=== PATIENT | female | born 1940 | race Two or more races ===

== ENCOUNTER → 2018-04-13 | Outpatient (CLI) | payer MEDICARE, MEDICAID ==
[~2018-04-13] MED LIST: ATO40T PO; IRBE300T46; LEVO25TA6 PO
== END | disposition home or self-care (01) ==
LOC: Rad HDHVI 13:34
PROVIDERS: ATTEND Internal Medicine
DX: I07.1 Rheumatic tricuspid insufficiency (principal); I34.0 Nonrheumatic mitral (valve) insufficiency; I10 Essential (primary) hypertension; I31.3 Pericardial effusion (noninflammatory); R00.1 Bradycardia, unspecified; R42 Dizziness and giddiness
CPT/HCPCS: 93306

== ENCOUNTER 2018-05-01 19:57 | Inpatient (IN) | payer MEDICARE, MEDICAID ==
[~2018-05-01] VITALS: Ht 154.9 cm; Wt 83.3 kg
[~2018-05-01 19:57] MED LIST changes: -AMIO200T33 PO; -APIX2.5T OR; -ESCI10TA PO; -IRBE150T57 PO; -LAM100T OR; -RANI150C11 PO
[2018-05-01] MEDS ORDERED: cloNIDine HCL 0.1 MG TAB ONE (20:45)
[2018-05-01] MEDS ORDERED: cloNIDine HCL 0.1 MG TAB PO ONE (20:45)
[2018-05-01 21:53] LABS: Albumin 3.7 g/dL (3.4-5.0); Calcium 7.7 mg/dL (8.5-10.1); Magnesium 2.4 mg/dL (1.6-2.6); Potassium 4.2 mmol/L (3.5-5.1)
[2018-05-01 21:55] LABS: BUN/Creatinine Ratio 16.1
[2018-05-01 22:00] LABS: Total Protein 7.6 g/dL (6.4-8.2)
[2018-05-01 22:03] LABS: Basophils # (auto) 0 uL; Basophils % (auto) 0.3 % (0.0-2.0); Eosinophils # (auto) 0.3 uL; Eosinophils % (auto) 4.8 % (0.0-7.0); Hematocrit 40.1 % (36.0-46.0); Hemoglobin 13.1 g/dL (12.2-16.2); Lymphocytes # (auto) 1.6 uL; Lymphocytes % (auto) 25.5 % (10.0-50.0); Mean Corpuscular Hemoglobin 27.9 pg (28.0-32.0); Mean Corpuscular Hgb Conc. 32.7 g/dL (32.0-36.0); Mean Corpuscular Volume 85.5 fL (80.0-100.0); Monocytes # (auto) 0.6 uL; Monocytes % (auto) 9.6 % (0.0-12.0); Neutrophils # (auto) 3.7 uL; Neutrophils % (auto) 59.8 % (37.0-80.0); Nucleated Red Blood Cells % 0.1 %; Platelet Count (auto) 146 10^3/uL (140-450); Red Blood Cells 4.69 10^6/uL (4.0-5.20); Red Cell Distribution Width 16.5 % (11.8-14.3); White Blood Cell 6.2 10^3/uL (4.4-10.8)
[2018-05-02 01:13] LABS: INR 1.06 (0.9-1.15); Partial Thromboplastin Time 31.2 sec (23.78-33.04); Prothrombin Time 11.3 sec (9.27-12.13)
[2018-05-02 01:27] LABS: Urine Bacteria NONE SEEN /hpf (None Seen); Urine Blood Negative /uL (Negative); Urine Specific Gravity 1.018 (1.001-1.035); Urine WBC 2 /hpf (0 - 5)
[2018-05-02] MEDS ORDERED: MORPHINE SULFATE 4 MG/ML SYR/VIAL IV PRN (05:45)
[2018-05-02] MEDS ORDERED: NITROGLYCERIN 0.4 MG SL TAB SL PRN (05:45)
[2018-05-02] MEDS ORDERED: ONDANSETRON HCL 4 MG/2 ML VIAL IV PRN (06:45)
[2018-05-02] MEDS: LEVOTHYROXINE SODIUM 100 MCG TAB PO SCH (07:04)
[2018-05-02] MEDS: ACETAMINOPHEN 500 MG TAB PO PRN ×2 (07:49→18:02)
[2018-05-02] MEDS ORDERED: ENOXAPARIN SOD 80 MG/0.8ML SYRINGE SC SCH (08:00)
[2018-05-02] MEDS ORDERED: NIFEdipine 10 MG CAP PO ONE (08:30)
[2018-05-02] MEDS ORDERED: ASPirin-EC 81 mg tab PO SCH (10:00)
[2018-05-02 10:52] VITALS: BP 154/96
[2018-05-02 10:52] LABS: Basophils # (auto) 0 uL; Basophils % (auto) 0.6 % (0.0-2.0); Eosinophils # (auto) 0.3 uL; Eosinophils % (auto) 5.5 % (0.0-7.0); Hematocrit 35.9 % (36.0-46.0); Hemoglobin 11.9 g/dL (12.2-16.2); Lymphocytes # (auto) 1.3 uL; Lymphocytes % (auto) 25.7 % (10.0-50.0); Mean Corpuscular Hgb Conc. 33.1 g/dL (32.0-36.0); Mean Corpuscular Volume 84.7 fL (80.0-100.0); Monocytes # (auto) 0.5 uL; Monocytes % (auto) 10.9 % (0.0-12.0); Neutrophils # (auto) 2.8 uL; Neutrophils % (auto) 57.3 % (37.0-80.0); Nucleated Red Blood Cells % 0.1 %; Platelet Count (auto) 127 10^3/uL (140-450); Red Blood Cells 4.24 10^6/uL (4.0-5.20); Red Cell Distribution Width 16.8 % (11.8-14.3); White Blood Cell 4.9 10^3/uL (4.4-10.8)
[2018-05-02] MEDS: LOSARTAN POTASSIUM 50 MG TAB PO SCH (11:04)
[2018-05-02] MEDS: NIFEdipine ER 30 MG TAB PO SCH (11:04)
[2018-05-02 11:06] LABS: Calcium 7.9 mg/dL (8.5-10.1); Potassium 4.1 mmol/L (3.5-5.1)
[2018-05-02 12:30] VITALS: BP 138/58
[2018-05-02 16:27] VITALS: BP 116/58
[2018-05-02] MEDS ORDERED: RANI150C11 PO (17:25)
[2018-05-02] MEDS ORDERED: IRBE150T57 PO (17:25)
[2018-05-02] MEDS ORDERED: AMIO200T33 PO (17:25)
[2018-05-02] MEDS ORDERED: APIX2.5T OR (17:25)
[2018-05-02] MEDS ORDERED: LAM100T OR (17:25)
[2018-05-02] MEDS ORDERED: ESCI10TA PO (17:25)
[2018-05-02] MEDS ORDERED: LORazepam 2MG/ML-1ML VIAL IV PRN (20:30)
[2018-05-02] MEDS: APIXABAN 2.5 MG TAB PO SCH (21:53)
[2018-05-02] MEDS: lamoTRIgine 100 MG TAB PO SCH (22:02)
[2018-05-02] MEDS: ATORVASTATIN 20 MG TAB PO SCH (22:02)
[2018-05-02] MEDS: PRAMIPEXOLE DIHYDROCHLORIDE MO 0.25 MG TAB PO SCH (22:02)
[2018-05-02 22:08] VITALS: BP 142/63
[2018-05-03] MEDS: ACETAMINOPHEN 500 MG TAB PO PRN ×2 (04:58→19:56)
[2018-05-03 05:27] VITALS: BP 147/76
[2018-05-03 06:21] LABS: % Iron Saturation 15.7 % (15-50)
[2018-05-03] MEDS: LEVOTHYROXINE SODIUM 100 MCG TAB PO SCH (06:23)
[2018-05-03 08:45] LABS: Cholesterol 81 mg/dL (< 200); HDL Cholesterol 42 mg/dL (40-59); LDL Cholesterol 42 mg/dL (< 100); Triglycerides 80 mg/dL (< 150)
[2018-05-03 09:09] VITALS: BP 148/56
[2018-05-03 09:31] VITALS: BP 131/75
[2018-05-03] MEDS: LOSARTAN POTASSIUM 50 MG TAB PO SCH (10:46)
[2018-05-03] MEDS: NIFEdipine ER 30 MG TAB PO SCH (10:46)
[2018-05-03] MEDS: lamoTRIgine 100 MG TAB PO SCH ×2 (10:46→21:47)
[2018-05-03] MEDS: APIXABAN 2.5 MG TAB PO SCH ×2 (10:46→21:46)
[2018-05-03 13:22] VITALS: BP 127/89
[2018-05-03 17:04] VITALS: BP 135/87
[2018-05-03] MEDS ORDERED: LACTULOSE 20Gm/30ML SOLN PO PRN (17:45)
[2018-05-03 19:56] LABS: INR 1.01 (0.9-1.15); Partial Thromboplastin Time 31.2 sec (23.78-33.04); Prothrombin Time 10.8 sec (9.27-12.13)
[2018-05-03] MEDS: SODIUM CHLORIDE 0.9% 1,000 ML IV SCH (20:52)
[2018-05-03 21:20] VITALS: BP 144/59
[2018-05-03] MEDS: PRAMIPEXOLE DIHYDROCHLORIDE MO 0.25 MG TAB PO SCH (21:47)
[2018-05-03] MEDS: METOCLOPRAMIDE HCL 10 MG TAB PO SCH (21:47)
[2018-05-03] MEDS: ATORVASTATIN 20 MG TAB PO SCH (21:47)
[2018-05-04 05:17] VITALS: BP 164/55
[2018-05-04] MEDS: SODIUM CHLORIDE 0.9% 1,000 ML IV SCH ×2 (05:24→16:52)
[2018-05-04 06:09] VITALS: BP 146/77
[2018-05-04] MEDS: METOCLOPRAMIDE HCL 10 MG TAB PO SCH ×3 (06:09→21:59)
[2018-05-04] MEDS: LEVOTHYROXINE SODIUM 100 MCG TAB PO SCH (06:10)
[2018-05-04] MEDS ORDERED: LIDOCAINE 2%HCL (LOCAL ANESTH.) INJ 10ml MDV ONE (07:20)
[2018-05-04] MEDS ORDERED: IOHEXOL 350 MG/ML 100ML IJ ONE (07:21)
[2018-05-04] MEDS ORDERED: fentaNYL CITRATE 100 MCG/2 ML VL ONE (08:01)
[2018-05-04] MEDS ORDERED: ANGIOMAX 250 MG VIAL IV ONE (08:01)
[2018-05-04] MEDS ORDERED: SODIUM CHL 0.9% 0 ML ONE (08:02)
[2018-05-04] MEDS ORDERED: MIDAZOLAM HCL 1MG/1ML-2 ML VIAL ONE (08:02)
[2018-05-04] MEDS: DEXAMETHASONE INJECTION 10 MG in D5W 5% 50 ML IV SCH (10:27)
[2018-05-04] MEDS: LOSARTAN POTASSIUM 50 MG TAB PO SCH (10:42)
[2018-05-04] MEDS: NIFEdipine ER 30 MG TAB PO SCH (10:42)
[2018-05-04] MEDS: APIXABAN 2.5 MG TAB PO SCH ×2 (10:43→21:59)
[2018-05-04] MEDS: lamoTRIgine 100 MG TAB PO SCH (10:43)
[2018-05-04 13:00] VITALS: BP 158/78
[2018-05-04 17:00] VITALS: BP 161/68
[2018-05-04] MEDS ORDERED: hydrALAZINE HCL 25 MG TAB PO ONE (17:30)
[2018-05-04] MEDS ORDERED: ISOSORBIDE DINITRATE 10 MG TAB PO ONE (17:30)
[2018-05-04] MEDS: ACETAMINOPHEN 500 MG TAB PO PRN (19:20)
[2018-05-04] MEDS: ATORVASTATIN 20 MG TAB PO SCH (21:59)
[2018-05-04] MEDS: PRAMIPEXOLE DIHYDROCHLORIDE MO 0.25 MG TAB PO SCH (21:59)
[2018-05-04] MEDS: hydrALAZINE HCL 25 MG TAB PO SCH (22:00)
[2018-05-04 22:18] VITALS: BP 129/58
[2018-05-05] MEDS: SODIUM CHLORIDE 0.9% 1,000 ML IV SCH (03:44)
[2018-05-05 05:31] VITALS: BP 144/57
[2018-05-05] MEDS: hydrALAZINE HCL 25 MG TAB PO SCH ×3 (06:15→21:56)
[2018-05-05] MEDS: METOCLOPRAMIDE HCL 10 MG TAB PO SCH ×3 (06:16→21:59)
[2018-05-05] MEDS: LEVOTHYROXINE SODIUM 100 MCG TAB PO SCH (06:24)
[2018-05-05 09:00] VITALS: BP 138/54
[2018-05-05] MEDS: ISOSORBIDE DINITRATE 10 MG TAB PO SCH (09:31)
[2018-05-05] MEDS: NIFEdipine ER 30 MG TAB PO SCH (09:31)
[2018-05-05] MEDS: APIXABAN 2.5 MG TAB PO SCH ×2 (09:32→21:59)
[2018-05-05] MEDS: lamoTRIgine 100 MG TAB PO SCH (09:32)
[2018-05-05] MEDS: LOSARTAN POTASSIUM 50 MG TAB PO SCH (09:33)
[2018-05-05] MEDS: DEXAMETHASONE INJECTION 10 MG in D5W 5% 50 ML IV SCH (10:32)
[2018-05-05 13:00] VITALS: BP 125/57
[2018-05-05 17:00] VITALS: BP 139/49
[2018-05-05] MEDS: PRAMIPEXOLE DIHYDROCHLORIDE MO 0.25 MG TAB PO SCH (21:59)
[2018-05-05] MEDS: ATORVASTATIN 20 MG TAB PO SCH (21:59)
[2018-05-05] MEDS: ACETAMINOPHEN 500 MG TAB PO PRN (22:04)
[2018-05-05 22:14] VITALS: BP 143/70
[2018-05-06 05:38] VITALS: BP 147/71
[2018-05-06] MEDS: hydrALAZINE HCL 25 MG TAB PO SCH ×2 (06:30→14:00)
[2018-05-06] MEDS: LEVOTHYROXINE SODIUM 100 MCG TAB PO SCH (06:30)
[2018-05-06] MEDS: METOCLOPRAMIDE HCL 10 MG TAB PO SCH ×2 (06:30→14:00)
[2018-05-06 09:00] VITALS: BP 122/60
[2018-05-06] MEDS: LOSARTAN POTASSIUM 50 MG TAB PO SCH (09:30)
[2018-05-06] MEDS: APIXABAN 2.5 MG TAB PO SCH (09:30)
[2018-05-06] MEDS: NIFEdipine ER 30 MG TAB PO SCH (09:31)
[2018-05-06] MEDS: lamoTRIgine 100 MG TAB PO SCH (09:31)
[2018-05-06] MEDS: ISOSORBIDE DINITRATE 10 MG TAB PO SCH (09:31)
[2018-05-06] MEDS: DEXAMETHASONE INJECTION 10 MG in D5W 5% 50 ML IV SCH (10:07)
[2018-05-06 12:32] VITALS: BP 122/60
== END 2018-05-06 13:52 | disposition home or self-care (01) | DRG 287 ==
LOC: ER 19:57 → TELE 19:58 → TELE-WESTW 05-02 08:25
PROVIDERS: ADMIT Nurse Practitioner Family; ATTEND Family Medicine
PROC: 4A023N7 Measurement of Cardiac Sampling and Pressure, Left Heart, Percutaneous Approach (ICD-10-PCS; principal; 2018-05-04)
PROC: B2111ZZ Fluoroscopy of Multiple Coronary Arteries using Low Osmolar Contrast (ICD-10-PCS; 2018-05-04)
PROC: B2151ZZ Fluoroscopy of Left Heart using Low Osmolar Contrast (ICD-10-PCS; 2018-05-04)
DX: R00.1 Bradycardia, unspecified (principal); R55 Syncope and collapse; I11.0 Hypertensive heart disease with heart failure; I50.9 Heart failure, unspecified; E83.51 Hypocalcemia; E78.00 Pure hypercholesterolemia, unspecified; E11.9 Type 2 diabetes mellitus without complications; E78.5 Hyperlipidemia, unspecified; G25.81 Restless legs syndrome; E03.9 Hypothyroidism, unspecified; G44.309 Post-traumatic headache, unspecified, not intractable; N28.9 Disorder of kidney and ureter, unspecified; S00.03XA Contusion of scalp, initial encounter; W18.39XA Other fall on same level, initial encounter; G43.909 Migraine, unspecified, not intractable, without status migrainosus; G47.00 Insomnia, unspecified; R29.6 Repeated falls; Z79.01 Long term (current) use of anticoagulants; Z79.899 Other long term (current) drug therapy; Z90.49 Acquired absence of other specified parts of digestive tract; Z82.49 Family history of ischemic heart disease and other diseases of the circulatory system; Z83.3 Family history of diabetes mellitus; Y93.89 Activity, other specified; Y92.89 Other specified places as the place of occurrence of the external cause; Y99.8 Other external cause status
CPT/HCPCS: 36415; 70450; 70551; 71045; 72125; 78452; 80048; 80053; 80061; 81001; 81003; 82306; 82607; 82728; 83036; 83540; 83550; 83735; 83880; 84439; 84443; 84484; 85025; 85379; 85610; 85652; 85730; 86850; 86900; 86901; 87086; 93005; 93017; 93886; 95819; 96372; 99152; A6257; J1100; J2001; J2250; J7060

== ENCOUNTER → 2018-05-01 | Outpatient (CLI) | payer MEDICARE, MEDICAID ==
[~2018-05-01] VITALS: Ht 157.5 cm; Wt 77.1 kg
[~2018-05-01] MED LIST changes: +AMIO200T33 PO; +APIX2.5T OR; +ESCI10TA PO; +IRBE150T57 PO; +LAM100T OR; +RANI150C11 PO
--- NOTE | 2018-05-01 10:54 | NUR ---
Unable to complete study, patients bp too high, hr too low. Patient has not taken her bp medication for 2 days and she had chocolate yesterday afternoon. will reschedule
[2018-05-01 12:24] LABS: Urine Blood Negative /uL (Negative); Urine Specific Gravity 1.013 (1.001-1.035)
[2018-05-01 12:36] LABS: Albumin 3.8 g/dL (3.4-5.0); Calcium 8.3 mg/dL (8.5-10.1); Potassium 4.2 mmol/L (3.5-5.1)
[2018-05-01 12:45] LABS: BUN/Creatinine Ratio 18.4; Total Protein 7.6 g/dL (6.4-8.2)
[2018-05-01 12:54] LABS: Free T4 (Free Thyroxine) 1.11 ng/dL (0.89-1.76)
[2018-05-01 14:55] LABS: Basophils # (auto) 0 uL; Basophils % (auto) 0.6 % (0.0-2.0); Eosinophils # (auto) 0.3 uL; Eosinophils % (auto) 5.6 % (0.0-7.0); Hematocrit 39.6 % (36.0-46.0); Hemoglobin 13.1 g/dL (12.2-16.2); Lymphocytes # (auto) 1.2 uL; Mean Corpuscular Hemoglobin 28.4 pg (28.0-32.0); Mean Corpuscular Hgb Conc. 33.2 g/dL (32.0-36.0); Mean Corpuscular Volume 85.4 fL (80.0-100.0); Monocytes # (auto) 0.5 uL; Monocytes % (auto) 9.6 % (0.0-12.0); Neutrophils # (auto) 3.2 uL; Neutrophils % (auto) 61.2 % (37.0-80.0); Nucleated Red Blood Cells % 0.2 %; Platelet Count (auto) 145 10^3/uL (140-450); Red Blood Cells 4.63 10^6/uL (4.0-5.20); Red Cell Distribution Width 16.7 % (11.8-14.3); White Blood Cell 5.3 10^3/uL (4.4-10.8)
== END | disposition home or self-care (01) ==
LOC: Rad HDHVI 08:42
PROVIDERS: ATTEND Internal Medicine
DX: Z00.00 Encounter for general adult medical examination without abnormal findings (principal); E03.9 Hypothyroidism, unspecified; E55.9 Vitamin D deficiency, unspecified; E11.9 Type 2 diabetes mellitus without complications; D51.9 Vitamin B12 deficiency anemia, unspecified; R70.0 Elevated erythrocyte sedimentation rate; N39.0 Urinary tract infection, site not specified
CPT/HCPCS: 36415; 80053; 80061; 81003; 82306; 82607; 83036; 84439; 84443; 85025; 85652; 87086

== ENCOUNTER 2018-05-26 20:51 | Emergency (ER) | payer MEDICARE, MEDICAID ==
[~2018-05-26] VITALS: Ht 152.4 cm; Wt 77.1 kg
[~2018-05-26 20:51] MED LIST changes: +AMIO200T33 PO; +APIX2.5T OR; +ESCI10TA PO; +IRBE150T57 PO; -IRBE300T46; +LAM100T OR; +RANI150C11 PO
[2018-05-26 22:09] LABS: Basophils # (auto) 0 uL; Basophils % (auto) 0.6 % (0.0-2.0); Eosinophils # (auto) 0.4 uL; Eosinophils % (auto) 7.8 % (0.0-7.0); Hematocrit 44.5 % (36.0-46.0); Hemoglobin 14.6 g/dL (12.2-16.2); Lymphocytes # (auto) 1.3 uL; Lymphocytes % (auto) 25.2 % (10.0-50.0); Mean Corpuscular Hemoglobin 28.1 pg (28.0-32.0); Mean Corpuscular Hgb Conc. 32.8 g/dL (32.0-36.0); Mean Corpuscular Volume 85.6 fL (80.0-100.0); Monocytes # (auto) 0.6 uL; Monocytes % (auto) 10.8 % (0.0-12.0); Neutrophils # (auto) 2.9 uL; Neutrophils % (auto) 55.6 % (37.0-80.0); Nucleated Red Blood Cells % 0.1 %; Platelet Count (auto) 193 10^3/uL (140-450); Red Blood Cells 5.19 10^6/uL (4.0-5.20); Red Cell Distribution Width 18.3 % (11.8-14.3); White Blood Cell 5.2 10^3/uL (4.4-10.8)
[2018-05-26 22:26] LABS: Albumin 4.1 g/dL (3.4-5.0); BUN/Creatinine Ratio 23.4; Calcium 8.8 mg/dL (8.5-10.1); Magnesium 2.3 mg/dL (1.6-2.6); Potassium 4.2 mmol/L (3.5-5.1)
[2018-05-26 22:31] LABS: Bilirubin, Total 0.4 mg/dL (0.2-1.0); Total Protein 8.1 g/dL (6.4-8.2)
[2018-05-27 01:56] LABS: Urine Bacteria FEW /hpf (None Seen); Urine Blood Negative /uL (Negative); Urine Hyaline Cast FEW /lpf (0 - 2); Urine Mucus FEW (None Seen); Urine Specific Gravity 1.011 (1.001-1.035); Urine WBC 2 /hpf (0 - 5)
[2018-05-27 04:29] VITALS: BP 132/64
== END 2018-05-27 04:31 | disposition home or self-care (01) ==
LOC: ER 20:51
DX: S09.90XA Unspecified injury of head, initial encounter (principal); M54.2 Cervicalgia; I10 Essential (primary) hypertension; I48.91 Unspecified atrial fibrillation; E78.5 Hyperlipidemia, unspecified; Z90.89 Acquired absence of other organs; W01.0XXA Fall on same level from slipping, tripping and stumbling without subsequent striking against object, initial encounter; Y93.89 Activity, other specified; Y99.8 Other external cause status; Y92.89 Other specified places as the place of occurrence of the external cause
CPT/HCPCS: 36415; 70450; 80053; 81001; 83735; 84484; 85025; 93005

== ENCOUNTER → 2018-08-07 | Outpatient (CLI) | payer MEDICARE, MEDICAID ==
[2018-08-07 12:25] LABS: Urine Blood Negative /uL (Negative); Urine Specific Gravity 1.023 (1.001-1.035)
[2018-08-07 12:27] LABS: Basophils # (auto) 0 uL; Basophils % (auto) 0.4 % (0.0-2.0); Eosinophils # (auto) 0.3 uL; Eosinophils % (auto) 2.9 % (0.0-7.0); Hemoglobin 14.7 g/dL (12.2-16.2); Lymphocytes % (auto) 22.4 % (10.0-50.0); Mean Corpuscular Hemoglobin 29.8 pg (28.0-32.0); Mean Corpuscular Hgb Conc. 32.7 g/dL (32.0-36.0); Mean Corpuscular Volume 91.2 fL (80.0-100.0); Monocytes # (auto) 0.6 uL; Monocytes % (auto) 6.4 % (0.0-12.0); Neutrophils # (auto) 6.1 uL; Neutrophils % (auto) 67.9 % (37.0-80.0); Nucleated Red Blood Cells % 0.1 %; Platelet Count (auto) 214 10^3/uL (140-450); Red Blood Cells 4.94 10^6/uL (4.0-5.20); Red Cell Distribution Width 16.4 % (11.8-14.3)
[2018-08-07 13:06] LABS: Anion Gap 5 (5-15); Calcium 8.5 mg/dL (8.5-10.1); Carbon Dioxide 27 mmol/L (21-32); Chloride 109 mmol/L (98-107); Potassium 3.9 mmol/L (3.5-5.1); Sodium 141 mmol/L (136-145)
[2018-08-07 13:13] LABS: Alanine Aminotransferase 32 U/L (13-56); Albumin 3.6 g/dL (3.4-5.0); Alkaline Phosphatase 89 U/L (45-117); Aspartate Aminotransferase 15 U/L (15-37); BUN/Creatinine Ratio 30.5; Bilirubin, Total 0.6 mg/dL (0.2-1.0); Blood Urea Nitrogen 25 mg/dL (7-18); Cholesterol 127 mg/dL (< 200); Free T4 (Free Thyroxine) 2.15 ng/dL (0.89-1.76); GFR African American > 60 mL/min; GFR Non-African American > 60 mL/min; Glucose 81 mg/dL (74-106); HDL Cholesterol 65 mg/dL (40-59); LDL Cholesterol 60 mg/dL (< 100); Total Protein 7.4 g/dL (6.4-8.2); Triglycerides 66 mg/dL (< 150)
== END | disposition home or self-care (01) ==
LOC: LAB 08:51
PROVIDERS: ATTEND Internal Medicine
DX: E03.9 Hypothyroidism, unspecified (principal); E11.9 Type 2 diabetes mellitus without complications; E55.9 Vitamin D deficiency, unspecified; D51.9 Vitamin B12 deficiency anemia, unspecified; N39.0 Urinary tract infection, site not specified
CPT/HCPCS: 36415; 80053; 80061; 81003; 82306; 82607; 83036; 84439; 84443; 85025; 87086

== ENCOUNTER → 2019-03-05 | Outpatient (CLI) | payer MEDICARE, MEDICAID ==
[2019-03-05 12:10] LABS: Urine Blood Negative /uL (Negative); Urine Specific Gravity 1.025 (1.001-1.035)
[2019-03-05 12:21] LABS: Basophils # (auto) 0 uL; Basophils % (auto) 0.7 % (0.0-2.0); Eosinophils # (auto) 0.2 uL; Eosinophils % (auto) 2.9 % (0.0-7.0); Hematocrit 40.6 % (36.0-46.0); Hemoglobin 13.6 g/dL (12.2-16.2); Lymphocytes # (auto) 2.1 uL; Lymphocytes % (auto) 29.9 % (10.0-50.0); Mean Corpuscular Hemoglobin 31.2 pg (28.0-32.0); Mean Corpuscular Hgb Conc. 33.6 g/dL (32.0-36.0); Monocytes # (auto) 0.6 uL; Monocytes % (auto) 8.6 % (0.0-12.0); Neutrophils # (auto) 4.1 uL; Neutrophils % (auto) 57.9 % (37.0-80.0); Platelet Count (auto) 196 10^3/uL (140-450); Red Blood Cells 4.37 10^6/uL (4.0-5.20); Red Cell Distribution Width 14.3 % (11.8-14.3)
[2019-03-05 12:39] LABS: Free T4 (Free Thyroxine) 1.41 ng/dL (0.89-1.76)
[2019-03-05 13:20] LABS: Potassium 3.8 mmol/L (3.5-5.1)
[2019-03-05 13:30] LABS: BUN/Creatinine Ratio 37.3; Calcium 8.2 mg/dL (8.5-10.1)
== END | disposition home or self-care (01) ==
LOC: LAB 09:10
PROVIDERS: ATTEND Internal Medicine
DX: E03.9 Hypothyroidism, unspecified (principal); K90.9 Intestinal malabsorption, unspecified; N39.0 Urinary tract infection, site not specified; D51.9 Vitamin B12 deficiency anemia, unspecified; Z79.899 Other long term (current) drug therapy
CPT/HCPCS: 36415; 80048; 80061; 81003; 82306; 82607; 83036; 84439; 84443; 85025

== ENCOUNTER → 2019-04-06 | Outpatient (CLI) | payer MEDICARE, MEDICAID ==
[2019-04-06 13:25] LABS: Albumin 3.3 g/dL (3.4-5.0); BUN/Creatinine Ratio 44.2; Bilirubin, Total 0.3 mg/dL (0.2-1.0); Calcium 8.4 mg/dL (8.5-10.1); Total Protein 6.7 g/dL (6.4-8.2)
== END | disposition home or self-care (01) ==
LOC: Rad HDHVI 08:42
PROVIDERS: ATTEND Internal Medicine
DX: M54.2 Cervicalgia (principal); I10 Essential (primary) hypertension
CPT/HCPCS: 36415; 72125; 80053

== ENCOUNTER → 2019-09-24 | Outpatient (CLI) | payer MEDICARE, MEDICAID ==
[2019-09-24 12:02] LABS: Urine Blood 2+ /uL (Negative); Urine Specific Gravity 1.016 (1.001-1.035)
[2019-09-24 12:11] LABS: Albumin 2.9 g/dL (3.4-5.0); BUN/Creatinine Ratio 29.9; Calcium 8.9 mg/dL (8.5-10.1); Hematocrit 35.6 % (36.0-46.0); Hemoglobin 11.7 g/dL (12.2-16.2); Mean Corpuscular Hgb Conc. 32.9 g/dL (32.0-36.0); Mean Corpuscular Volume 88.2 fL (80.0-100.0); Platelet Count (auto) 247 10^3/uL (140-450); Potassium 3.9 mmol/L (3.5-5.1); Red Blood Cells 4.04 10^6/uL (4.0-5.20); Red Cell Distribution Width 13.4 % (11.8-14.3); White Blood Cell 5.7 10^3/uL (4.4-10.8)
[2019-09-24 12:14] LABS: Band Neutrophils % (manual) 0; Basophils % (manual) 0 (0.0-2.0); Blast Cells 0; Metamyelocytes % 0; Myelocytes % 0; Promyelocytes % 0; Reactive Lymphocytes 0
[2019-09-24 12:16] LABS: Bilirubin, Total 0.6 mg/dL (0.2-1.0); Total Protein 6.8 g/dL (6.4-8.2)
[2019-09-24 12:21] LABS: Free T4 (Free Thyroxine) 2.5 ng/dL (0.89-1.76)
[2019-09-24 13:43] LABS: Eosinophils % (manual) 12 (0-7); Lymphocytes % (manual) 27 (10.0-50.0); Monocytes % (manual) 11 (0-12)
== END | disposition home or self-care (01) ==
LOC: Rad HDHVI 08:52
PROVIDERS: ATTEND Internal Medicine Cardiovascular Disease
DX: I65.21 Occlusion and stenosis of right carotid artery (principal); E03.9 Hypothyroidism, unspecified; K90.9 Intestinal malabsorption, unspecified; N39.0 Urinary tract infection, site not specified; D51.9 Vitamin B12 deficiency anemia, unspecified; R42 Dizziness and giddiness; I10 Essential (primary) hypertension; G45.9 Transient cerebral ischemic attack, unspecified; Z79.899 Other long term (current) drug therapy
CPT/HCPCS: 36415; 80053; 80061; 81003; 82306; 82607; 83036; 84439; 84443; 85007; 85027; 87086; 87088; 87186; 93880

== ENCOUNTER → 2020-10-21 | Outpatient (CLI) | payer MEDICARE, MEDICAID | END | disposition home or self-care (01) | LOC: Rad HDHVI 11:35 | PROVIDERS: ATTEND Internal Medicine | DX: I65.21 Occlusion and stenosis of right carotid artery (principal); R42 Dizziness and giddiness | CPT/HCPCS: 93970 ==

== ENCOUNTER → 2020-10-29 | Outpatient (CLI) | payer MEDICARE, MEDICAID | END | disposition home or self-care (01) | LOC: Rad HDHVI 16:06 | PROVIDERS: ATTEND Internal Medicine | DX: I07.1 Rheumatic tricuspid insufficiency (principal); R00.2 Palpitations; R00.1 Bradycardia, unspecified | CPT/HCPCS: 93306 ==

== ENCOUNTER → 2021-01-27 | Outpatient (CLI) | payer MEDICARE, MEDICAID ==
[2021-01-27 15:35] LABS: Urine Blood Negative /uL (Negative); Urine Specific Gravity 1.017 (1.001-1.035)
[2021-01-27 15:40] LABS: Free T4 (Free Thyroxine) 1.58 ng/dL (0.89-1.76)
[2021-01-27 15:50] LABS: Albumin 3.6 g/dL (3.4-5.0); BUN/Creatinine Ratio 43.9; Bilirubin, Total 0.6 mg/dL (0.2-1.0); Potassium 4.6 mmol/L (3.5-5.1); Total Protein 7.6 g/dL (6.4-8.2)
[2021-01-27 16:02] LABS: Basophils # (auto) 0 10 ^3/uL (0-0.2); Basophils % (auto) 0.4 % (0.0-2.0); Eosinophils # (auto) 0.2 10 ^3/uL (0-0.8); Eosinophils % (auto) 2.4 % (0.0-7.0); Hematocrit 41.3 % (36.0-46.0); Hemoglobin 13.5 g/dL (12.2-16.2); Lymphocytes # (auto) 2.1 10 ^3/uL (0.4-5.4); Lymphocytes % (auto) 26.2 % (10.0-50.0); Mean Corpuscular Hemoglobin 28.6 pg (28.0-32.0); Mean Corpuscular Hgb Conc. 32.7 g/dL (32.0-36.0); Mean Corpuscular Volume 87.4 fL (80.0-100.0); Monocytes # (auto) 0.7 10 ^3/uL (0-1.3); Monocytes % (auto) 9.4 % (0.0-12.0); Neutrophils # (auto) 4.9 10 ^3/uL (1.6-8.6); Neutrophils % (auto) 61.6 % (37.0-80.0); Red Blood Cells 4.73 10^6/uL (4.0-5.20); Red Cell Distribution Width 15.5 % (11.8-14.3); White Blood Cell 7.9 10^3/uL (4.4-10.8)
== END | disposition home or self-care (01) ==
LOC: LAB 08:34
PROVIDERS: ATTEND Internal Medicine
DX: D51.3 Other dietary vitamin B12 deficiency anemia (principal); I10 Essential (primary) hypertension; E11.9 Type 2 diabetes mellitus without complications; E55.9 Vitamin D deficiency, unspecified; D64.9 Anemia, unspecified; R00.2 Palpitations; R53.1 Weakness; R30.0 Dysuria
CPT/HCPCS: 36415; 80053; 80061; 81003; 82306; 82607; 83036; 84439; 84443; 85025

== ENCOUNTER → 2021-09-03 | Outpatient (CLI) | payer MEDICARE, MEDICAID ==
[2021-09-03 15:19] LABS: Basophils # (auto) 0.1 10 ^3/uL (0-0.2); Basophils % (auto) 0.8 % (0.0-2.0); Eosinophils # (auto) 0.2 10 ^3/uL (0-0.8); Eosinophils % (auto) 2.7 % (0.0-7.0); Hematocrit 40.5 % (36.0-46.0); Hemoglobin 13.6 g/dL (12.2-16.2); Lymphocytes # (auto) 1.6 10 ^3/uL (0.4-5.4); Lymphocytes % (auto) 22.8 % (10.0-50.0); Mean Corpuscular Hemoglobin 29.9 pg (28.0-32.0); Mean Corpuscular Hgb Conc. 33.7 g/dL (32.0-36.0); Mean Corpuscular Volume 88.8 fL (80.0-100.0); Monocytes # (auto) 0.8 10 ^3/uL (0-1.3); Monocytes % (auto) 11.5 % (0.0-12.0); Neutrophils # (auto) 4.4 10 ^3/uL (1.6-8.6); Neutrophils % (auto) 62.2 % (37.0-80.0); Nucleated Red Blood Cells % 0.1 %; Red Blood Cells 4.57 10^6/uL (4.0-5.20); Red Cell Distribution Width 14.4 % (11.8-14.3); White Blood Cell 7.1 10^3/uL (4.4-10.8)
[2021-09-03 15:23] LABS: Urine Blood Negative /uL (Negative); Urine Specific Gravity 1.014 (1.001-1.035)
[2021-09-03 15:31] LABS: Calcium 9.3 mg/dL (8.5-10.1); Potassium 4.5 mmol/L (3.5-5.1)
[2021-09-03 15:43] LABS: BUN/Creatinine Ratio 41.4
== END | disposition home or self-care (01) ==
LOC: LAB 10:45
PROVIDERS: ATTEND Internal Medicine
DX: E11.9 Type 2 diabetes mellitus without complications (principal); D51.3 Other dietary vitamin B12 deficiency anemia; D64.9 Anemia, unspecified; E55.9 Vitamin D deficiency, unspecified; I10 Essential (primary) hypertension; R00.2 Palpitations; R53.1 Weakness; R30.0 Dysuria
CPT/HCPCS: 36415; 80048; 80061; 81003; 83036; 84439; 84443; 85025

== ENCOUNTER → 2021-11-02 | Outpatient (CLI) | payer MEDICARE, MEDICAID ==
[~2021-11-02] MED LIST changes: +ADENOSINE 90 MG/30 ML INJ IV ONE; +cloNIDine HCL 0.1 MG TAB ONE
== END | disposition home or self-care (01) ==
LOC: Rad HDHVI 13:03
PROVIDERS: ATTEND Internal Medicine
DX: I10 Essential (primary) hypertension (principal); E78.5 Hyperlipidemia, unspecified; I20.9 Angina pectoris, unspecified; I49.9 Cardiac arrhythmia, unspecified; I48.91 Unspecified atrial fibrillation; R00.0 Tachycardia, unspecified; Z86.79 Personal history of other diseases of the circulatory system
CPT/HCPCS: 78452; 93005; 96374; 96375; A9500; J0153

== ENCOUNTER → 2022-05-13 | Outpatient (CLI) | payer MEDICARE, MEDICAID ==
[~2022-05-13] MED LIST changes: -ADENOSINE 90 MG/30 ML INJ IV ONE; -cloNIDine HCL 0.1 MG TAB ONE
== END | disposition home or self-care (01) ==
LOC: Rad HDHVI 12:22
PROVIDERS: ATTEND Internal Medicine
DX: M17.0 Bilateral primary osteoarthritis of knee (principal)
CPT/HCPCS: 73562